=== PATIENT | male | born 1960 | race Caucasian/White ===

== ENCOUNTER 2024-01-30 14:33 | Inpatient (IN) ==
[2024-01-30] MEDS: Lactated Ringers SEPSIS* BAG 1,780 ML IV ONE (15:05)
[2024-01-30 15:21] LABS: Hematocrit 24.2 % (38-53); Hemoglobin 8.6 g/dL (13.2-16.3); Mean Corpuscular Hemoglobin 37.5 pg (27-33); Mean Corpuscular Hgb Conc 35.5 g/dL (31-36); Mean Corpuscular Volume 105.7 fL (80-97); Red Blood Count 2.29 10^6/uL (4.06-5.63); Red Cell Distribution Width 15.8 % (12-17); White Blood Count 28.3 10^3/uL (3.6-10.2)
[2024-01-30 15:31] LABS: Activated Partial Thrombo Time 39.3 seconds (26.0-38.0); INR 1.65 (0.85-1.14)
[2024-01-30 15:41] LABS: C Reactive Protein 23.84 mg/L (<8.01); Calcium 10.1 mg/dL (8.6-10.3); Creatinine, Serum 2.73 mg/dL (0.67-1.17); Potassium 5.2 mmol/L (3.5-5.0); eGFR CKD-EPI 25.2 (>60)
[2024-01-30 15:45] LABS: Albumin 3.5 g/dL (3.2-5.2); Albumin/Globulin Ratio 0.9 (1-3); Globulin 3.7 g/dL (2-4); Total Bilirubin 14.8 mg/dL (0.2-1.0); Total Protein 7.2 g/dL (6.4-8.9)
[2024-01-30] MEDS: Piperacillin/Tazobac 3.375 BAG 3.375 GM/100 ML BAG IV ONE (15:45)
[2024-01-30 15:49] LABS: ABS Basophils 0.1 10^3/uL (0.0-0.1); ABS Lymphocytes 1.3 10^3/uL (1.0-4.8); ABS Monocytes 2.4 10^3/uL (0.0-1.1); ABS Neutrophils 24.4 10^3/uL (1.5-7.6); ABS Nucleated RBC 0.01 10^3/ul; Lymphocyte % 4.8 %; Mean Platelet Volume 6.9 fL (7.5-11.2); Platelet Count 211 10^3/uL (150-450)
[2024-01-30] MEDS ORDERED: Vancomycin 1,000 MG in NS 0.9% 250 ml 250 ML IVPB SCH (16:00)
[2024-01-30] MEDS: Vancomycin 1,000 MG - ED ONCE IVPB ONE (16:15)
[2024-01-30 16:46] LABS: High Sensitivity Troponin 1 Hr 19 pg/mL (<20)
[2024-01-30 18:23] LABS: Urine Appearance Turbid; Urine Bilirubin 1+ (Negative); Urine Blood 1+ (Negative); Urine Color Dark-Yellow; Urine Glucose Negative (Negative); Urine Ketones Negative (Negative); Urine Nitrite Negative (Negative); Urine Protein Trace (Negative); Urine Urobilinogen 1+ (Negative)
[2024-01-30 19:12] LABS: Urine Bacteria Absent /HPF (Absent); Urine Red Blood Cell 1+(3-5/hpf) /HPF (0-Trace); Urine Squamous Epithelial Cell Present /HPF (Absent); Urine White Blood Cell 1+(6-10/hpf) /HPF (0-Trace)
[2024-01-30 23:53] LABS: ABS Basophils 0.1 10^3/uL (0.0-0.1); ABS Lymphocytes 1.5 10^3/uL (1.0-4.8); ABS Monocytes 2.5 10^3/uL (0.0-1.1); ABS Neutrophils 24.8 10^3/uL (1.5-7.6); ABS Nucleated RBC 0.01 10^3/ul; Eosinophil % 0.1 %; Hematocrit 19.7 % (38-53); Hemoglobin 6.7 g/dL (13.2-16.3); Lymphocyte % 5.3 %; Mean Corpuscular Hgb Conc 34.1 g/dL (31-36); Mean Corpuscular Volume 105.4 fL (80-97); Mean Platelet Volume 6.7 fL (7.5-11.2); Platelet Count 163 10^3/uL (150-450); Red Blood Count 1.87 10^6/uL (4.06-5.63); Red Cell Distribution Width 16.1 % (12-17)
[2024-01-31 00:07] LABS: Calcium 8.4 mg/dL (8.6-10.3); Creatinine, Serum 2.51 mg/dL (0.67-1.17); eGFR CKD-EPI 27.9 (>60)
[2024-01-31 00:13] LABS: Albumin 2.8 g/dL (3.2-5.2); Albumin/Globulin Ratio 1.1 (1-3); Direct Bilirubin 3.6 mg/dL (0.03-0.18); Globulin 2.6 g/dL (2-4); Indirect Bilirubin 8.4 mg/dL (0.3-1.0); Total Protein 5.4 g/dL (6.4-8.9)
[2024-01-31] MEDS: Lactulose 30 ml UDC PO SCH (00:20)
[2024-01-31] MEDS: Lactated Ringers 1000 ml BAG 1,000 ML IV ONE (00:21)
[2024-01-31] MEDS: Polyethylene Glycol 3350 17 GM PACKET PO SCH (00:21)
[2024-01-31] MEDS ORDERED: Zosyn per Pharmacy NOTE FOLLOW UP SCH (02:00)
[2024-01-31 03:26] LABS: Hematocrit 16.1 % (38-53); Hemoglobin 5.6 g/dL (13.2-16.3)
[2024-01-31] MEDS: Zosyn 3.375 GM IV - ED ONCE IV ONE (03:30)
[2024-01-31] MEDS: Pantoprazole VIAL 40 MG VIAL IV ONE (04:15)
[2024-01-31] MEDS: cefTRIAXone 1 gm/50 mL D5W 1 GM/50 ML BAG IV SCH (04:26)
[2024-01-31] MEDS: Octreotide Acetate 50 MCG in NS 0.9% 50 ML 50 ML IV ONE (04:51)
[2024-01-31 05:00] LABS: Hemoglobin 6.1 g/dL (13.2-16.3)
[2024-01-31 05:26] LABS: Albumin 2.7 g/dL (3.2-5.2); Albumin/Globulin Ratio 0.9 (1-3); Calcium 8.5 mg/dL (8.6-10.3); Creatinine, Serum 2.92 mg/dL (0.67-1.17); Globulin 2.9 g/dL (2-4); Potassium 5.5 mmol/L (3.5-5.0); Total Bilirubin 11.3 mg/dL (0.2-1.0); Total Protein 5.6 g/dL (6.4-8.9); eGFR CKD-EPI 23.2 (>60)
[2024-01-31] MEDS: Pantoprazole 80 mg in NS BAG 80 MG/250 ML BAG IV SCH (05:31)
[2024-01-31 05:38] LABS: ABS Basophils 0.2 10^3/uL (0.0-0.1); ABS Lymphocytes 1.9 10^3/uL (1.0-4.8); ABS Monocytes 2.2 10^3/uL (0.0-1.1); ABS Neutrophils 25.2 10^3/uL (1.5-7.6); Eosinophil % 0.1 %; Hematocrit 17.4 % (38-53); Lymphocyte % 6.3 %; Macrocytosis 1+; Mean Corpuscular Hgb Conc 35.2 g/dL (31-36); Mean Corpuscular Volume 105.2 fL (80-97); Mean Platelet Volume 6.9 fL (7.5-11.2); Platelet Count 152 10^3/uL (150-450); Polychromasia 2+; Red Blood Count 1.66 10^6/uL (4.06-5.63); Red Cell Distribution Width 16.4 % (12-17); Tear Drop Cells 1+; White Blood Count 29.5 10^3/uL (3.6-10.2)
[2024-01-31] MEDS: Octreotide Acetate 500 MCG in NS 0.9% 100 ml BAG 100 ML IV SCH (05:43)
[2024-01-31] MEDS ORDERED: HYDROmorphone 1 MG/1 ML SYRINGE IV SLOW PU PRN (09:53)
[2024-01-31] MEDS: Phytonadione IV (Adult) 10 MG in NS 0.9% 50 ML 50 ML IV ONE (11:30)
[2024-01-31] MEDS ORDERED: Sulfur Hexaflouride MICROSPHR 25 MG VIAL IV PRN (12:24)
[2024-01-31] MEDS: ceFAZolin 1 GM in Dextrose 1 GM/50 ML BAG IVPB ONE (13:19)
[2024-01-31 15:06] LABS: Magnesium 1.7 mg/dL (1.9-2.7); Phosphorus 5.6 mg/dL (2.5-5.0)
[2024-01-31] MEDS: Magnesium Sulfate 2 gm BAG 2 GM/50 ML BAG IVPB ONE (15:33)
[2024-01-31 16:10] LABS: Hematocrit 20.3 % (38-53); Hemoglobin 7.3 g/dL (13.2-16.3); Mean Corpuscular Hgb Conc 35.8 g/dL (31-36); Mean Corpuscular Volume 97.9 fL (80-97); Mean Platelet Volume 6.9 fL (7.5-11.2); Platelet Count 113 10^3/uL (150-450); Red Blood Count 2.07 10^6/uL (4.06-5.63); Red Cell Distribution Width 17.3 % (12-17); White Blood Count 26.3 10^3/uL (3.6-10.2)
[2024-01-31] MEDS: SODIUM ZIRCONIUM CYCLOSILICATE 10 GM PACKET PO ONE (16:11)
[2024-01-31 16:29] LABS: Activated Partial Thrombo Time 35.7 seconds (26.0-38.0); INR 1.71 (0.85-1.14)
[2024-01-31 16:52] LABS: ABS Basophils 0.1 10^3/uL (0.0-0.1); ABS Eosinophils 0.1 10^3/uL (0.0-0.5); ABS Lymphocytes 2.1 10^3/uL (1.0-4.8); ABS Monocytes 2.2 10^3/uL (0.0-1.1); ABS Neutrophils 21.7 10^3/uL (1.5-7.6); ABS Nucleated RBC 0.02 10^3/ul; Anisocytosis 1+; Basophilic Stippling 1+; Eosinophil % 0.3 %; Lymphocyte % 8.1 %; Nucleated Red Blood Cells % 0.1 %/100WBC (0.0-0.8); Tear Drop Cells 1+; Toxic Granulation 1+
[2024-01-31] MEDS: Magnesium Sulfate IV 1GM/100ML 1 GM/100 ML BAG IV ONE (16:55)
[2024-01-31 16:57] LABS: Calcium 8.5 mg/dL (8.6-10.3); Creatinine, Serum 2.62 mg/dL (0.67-1.17); Potassium 5.7 mmol/L (3.5-5.0); eGFR CKD-EPI 26.5 (>60)
[2024-01-31 17:01] LABS: Albumin 2.8 g/dL (3.2-5.2); Globulin 2.7 g/dL (2-4); Total Bilirubin 12.3 mg/dL (0.2-1.0); Total Protein 5.5 g/dL (6.4-8.9)
[2024-01-31] MEDS: NS 0.9% 1000 ml BAG 1,000 ML IV SCH (22:10)
[2024-02-01 00:47] LABS: Hematocrit 19.6 % (38-53); Hemoglobin 7.1 g/dL (13.2-16.3); Mean Corpuscular Hemoglobin 35.1 pg (27-33); Mean Corpuscular Hgb Conc 36.2 g/dL (31-36); Red Blood Count 2.02 10^6/uL (4.06-5.63); Red Cell Distribution Width 18.8 % (12-17); White Blood Count 22.3 10^3/uL (3.6-10.2)
[2024-02-01 01:16] LABS: Calcium 8.1 mg/dL (8.6-10.3); Creatinine, Serum 2.28 mg/dL (0.67-1.17); Potassium 4.9 mmol/L (3.5-5.0); eGFR CKD-EPI 31.3 (>60)
[2024-02-01 01:51] LABS: ABS Basophils 0.1 10^3/uL (0.0-0.1); ABS Eosinophils 0.1 10^3/uL (0.0-0.5); ABS Lymphocytes 1.9 10^3/uL (1.0-4.8); ABS Monocytes 2.2 10^3/uL (0.0-1.1); ABS Nucleated RBC 0.02 10^3/ul; Anisocytosis 1+; Eosinophil % 0.4 %; Lymphocyte % 8.5 %; Mean Platelet Volume 6.7 fL (7.5-11.2); Nucleated Red Blood Cells % 0.1 %/100WBC (0.0-0.8); Platelet Count 98 10^3/uL (150-450)
[2024-02-01] MEDS: ceFAZolin 1 GM in Dextrose 1 GM/50 ML BAG IVPB SCH (02:04)
[2024-02-01] MEDS ORDERED: cefTRIAXone 1 gm/50 mL D5W 1 GM/50 ML BAG IV SCH (04:00)
[2024-02-01 06:20] LABS: INR 1.61 (0.85-1.14)
[2024-02-01 06:50] LABS: Hematocrit 20.3 % (38-53); Hemoglobin 7.3 g/dL (13.2-16.3); Mean Corpuscular Hemoglobin 34.7 pg (27-33); Mean Corpuscular Hgb Conc 35.8 g/dL (31-36); Red Blood Count 2.09 10^6/uL (4.06-5.63); Red Cell Distribution Width 18.7 % (12-17); White Blood Count 20.7 10^3/uL (3.6-10.2)
[2024-02-01 06:51] LABS: Calcium 8.2 mg/dL (8.6-10.3); Creatinine, Serum 1.91 mg/dL (0.67-1.17); Potassium 4.6 mmol/L (3.5-5.0); eGFR CKD-EPI 38.7 (>60)
[2024-02-01 07:00] LABS: Albumin 2.7 g/dL (3.2-5.2); Albumin/Globulin Ratio 1.1 (1-3); Globulin 2.5 g/dL (2-4); Total Bilirubin 13.9 mg/dL (0.2-1.0); Total Protein 5.2 g/dL (6.4-8.9)
[2024-02-01 07:39] LABS: Mean Platelet Volume 6.9 fL (7.5-11.2); Platelet Count 98 10^3/uL (150-450)
[2024-02-01 07:40] LABS: ABS Basophils 0.2 10^3/uL (0.0-0.1); ABS Eosinophils 0.1 10^3/uL (0.0-0.5); ABS Lymphocytes 1.9 10^3/uL (1.0-4.8); ABS Monocytes 2.1 10^3/uL (0.0-1.1); ABS Neutrophils 16.2 10^3/uL (1.5-7.6); ABS Nucleated RBC 0.03 10^3/ul; Eosinophil % 0.4 %; Lymphocyte % 9.4 %; Nucleated Red Blood Cells % 0.1 %/100WBC (0.0-0.8)
[2024-02-01 14:16] LABS: Hematocrit 19.2 % (38-53); Hemoglobin 6.8 g/dL (13.2-16.3)
[2024-02-02 07:17] LABS: Hematocrit 21.8 % (38-53); Mean Corpuscular Hemoglobin 35.3 pg (27-33); Mean Corpuscular Hgb Conc 36.7 g/dL (31-36); Mean Corpuscular Volume 96.1 fL (80-97); Red Blood Count 2.27 10^6/uL (4.06-5.63); White Blood Count 14.8 10^3/uL (3.6-10.2)
[2024-02-02 07:18] LABS: INR 1.65 (0.85-1.14)
[2024-02-02 07:40] LABS: Calcium 7.7 mg/dL (8.6-10.3); Potassium 4.2 mmol/L (3.5-5.0)
[2024-02-02 07:46] LABS: Albumin 2.6 g/dL (3.2-5.2); Albumin/Globulin Ratio 1.1 (1-3); Globulin 2.4 g/dL (2-4); Magnesium 1.8 mg/dL (1.9-2.7); Total Bilirubin 15.3 mg/dL (0.2-1.0)
[2024-02-02 08:30] LABS: ABS Basophils 0.1 10^3/uL (0.0-0.1); ABS Eosinophils 0.1 10^3/uL (0.0-0.5); ABS Lymphocytes 1.6 10^3/uL (1.0-4.8); ABS Monocytes 1.7 10^3/uL (0.0-1.1); ABS Neutrophils 11.3 10^3/uL (1.5-7.6); ABS Nucleated RBC 0.02 10^3/ul; Anisocytosis 1+; Basophilic Stippling 1+; Eosinophil % 0.6 %; Lymphocyte % 11.1 %; Nucleated Red Blood Cells % 0.1 %/100WBC (0.0-0.8); Platelet Count 82 10^3/uL (150-450); Polychromasia 1+; Toxic Granulation 1+
[2024-02-02] MEDS: Magnesium Sulfate 2 gm BAG 2 GM/50 ML BAG IVPB ONE (08:33)
[2024-02-02 12:39] LABS: Hematocrit 22.7 % (38-53); Hemoglobin 8.1 g/dL (13.2-16.3); Mean Corpuscular Hgb Conc 35.7 g/dL (31-36); Red Blood Count 2.32 10^6/uL (4.06-5.63); Red Cell Distribution Width 18.5 % (12-17); White Blood Count 16.4 10^3/uL (3.6-10.2)
[2024-02-02 13:26] LABS: ABS Basophils 0.1 10^3/uL (0.0-0.1); ABS Eosinophils 0.1 10^3/uL (0.0-0.5); ABS Lymphocytes 1.4 10^3/uL (1.0-4.8); ABS Monocytes 1.7 10^3/uL (0.0-1.1); ABS Neutrophils 13.1 10^3/uL (1.5-7.6); ABS Nucleated RBC 0.03 10^3/ul; Eosinophil % 0.7 %; Lymphocyte % 8.8 %; Nucleated Red Blood Cells % 0.2 %/100WBC (0.0-0.8); Platelet Count 90 10^3/uL (150-450)
[2024-02-02] MEDS: ceFAZolin 2 GM PREMIX 2 GM/50 ML BAG IV SCH (14:20)
[2024-02-02 14:38] LABS: Urine Appearance Clear; Urine Bilirubin 1+ (Negative); Urine Blood Trace (Negative); Urine Color Dark-Yellow; Urine Glucose Negative (Negative); Urine Ketones Negative (Negative); Urine Nitrite Negative (Negative); Urine Protein Negative (Negative); Urine Specific Gravity 1.015 (1.002-1.030); Urine Urobilinogen Negative (Negative); Urine pH 5.5 (5.0-8.0)
[2024-02-02 14:39] LABS: Urine Bacteria Absent /HPF (Absent); Urine Red Blood Cell Trace(0-2/hpf) /HPF (0-Trace); Urine Squamous Epithelial Cell Present /HPF (Absent); Urine White Blood Cell Trace(0-5/hpf) /HPF (0-Trace)
[2024-02-02 21:07] LABS: Hemoglobin 7.6 g/dL (13.2-16.3); Mean Corpuscular Hemoglobin 35.5 pg (27-33); Mean Corpuscular Hgb Conc 36.3 g/dL (31-36); Mean Corpuscular Volume 97.9 fL (80-97); Red Blood Count 2.14 10^6/uL (4.06-5.63); Red Cell Distribution Width 18.4 % (12-17); White Blood Count 19.5 10^3/uL (3.6-10.2)
[2024-02-02 21:42] LABS: Mean Platelet Volume 6.9 fL (7.5-11.2); Platelet Count 89 10^3/uL (150-450)
[2024-02-02 21:44] LABS: ABS Basophils 0.1 10^3/uL (0.0-0.1); ABS Eosinophils 0.1 10^3/uL (0.0-0.5); ABS Lymphocytes 2.2 10^3/uL (1.0-4.8); ABS Monocytes 2.5 10^3/uL (0.0-1.1); ABS Neutrophils 14.6 10^3/uL (1.5-7.6); ABS Nucleated RBC 0.04 10^3/ul; Anisocytosis 1+; Eosinophil % 0.7 %; Lymphocyte % 11.3 %; Nucleated Red Blood Cells % 0.2 %/100WBC (0.0-0.8)
[2024-02-02] MEDS: Pantoprazole VIAL 40 MG VIAL IV SCH (22:32)
[2024-02-03] MEDS: ceFAZolin 2 GM PREMIX 2 GM/50 ML BAG IV SCH (05:42)
[2024-02-03 06:14] LABS: INR 1.93 (0.85-1.14)
[2024-02-03 06:16] LABS: Hematocrit 21.6 % (38-53); Hemoglobin 7.9 g/dL (13.2-16.3); Mean Corpuscular Hemoglobin 35.9 pg (27-33); Mean Corpuscular Hgb Conc 36.3 g/dL (31-36); Mean Corpuscular Volume 98.7 fL (80-97); Platelet Count 82 10^3/uL (150-450); Red Blood Count 2.19 10^6/uL (4.06-5.63); Red Cell Distribution Width 18.3 % (12-17)
[2024-02-03 06:36] LABS: Calcium 7.5 mg/dL (8.6-10.3); Creatinine, Serum 0.84 mg/dL (0.67-1.17); Potassium 3.8 mmol/L (3.5-5.0); eGFR CKD-EPI 97.4 (>60)
[2024-02-03 06:41] LABS: Albumin 2.5 g/dL (3.2-5.2); Albumin/Globulin Ratio 1.1 (1-3); Globulin 2.3 g/dL (2-4); Total Protein 4.8 g/dL (6.4-8.9)
[2024-02-03 07:01] LABS: Magnesium 1.8 mg/dL (1.9-2.7)
[2024-02-03 07:12] LABS: ABS Basophils 0.2 10^3/uL (0.0-0.1); ABS Eosinophils 0.1 10^3/uL (0.0-0.5); ABS Lymphocytes 2.3 10^3/uL (1.0-4.8); ABS Monocytes 1.3 10^3/uL (0.0-1.1); ABS Neutrophils 14.1 10^3/uL (1.5-7.6); ABS Nucleated RBC 0.02 10^3/ul; Anisocytosis 1+; Burr Cells 1+; Eosinophil % 0.6 %; Lymphocyte % 12.7 %; Nucleated Red Blood Cells % 0.1 %/100WBC (0.0-0.8); Polychromasia 1+; Target Cells 1+
[2024-02-03] MEDS: Magnesium Sulfate 2 gm BAG 2 GM/50 ML BAG IVPB ONE (09:20)
[2024-02-03] MEDS ORDERED: Phenylephrine 40 mcg/mL 10mL (400mcg) SYRINGE ONE (13:56)
[2024-02-03] MEDS ORDERED: Lidocaine 2% PF 5 ML VIAL ONE (13:56)
[2024-02-03] MEDS ORDERED: Propofol 10 MG/ML 20 ML BTL ONE (14:14)
[2024-02-03] MEDS ORDERED: Succinylcholine 200 mg VIAL 20 mg/ml 10 ml VIAL (200 mg) ONE (14:55)
[2024-02-04 06:17] LABS: INR 2.09 (0.85-1.14)
[2024-02-04 06:44] LABS: Calcium 7.7 mg/dL (8.6-10.3); Creatinine, Serum 0.74 mg/dL (0.67-1.17); Potassium 3.6 mmol/L (3.5-5.0); eGFR CKD-EPI 101.2 (>60)
[2024-02-04 06:46] LABS: Albumin 2.5 g/dL (3.2-5.2); Albumin/Globulin Ratio 1.1 (1-3); Globulin 2.3 g/dL (2-4); Total Bilirubin 13.9 mg/dL (0.2-1.0); Total Protein 4.8 g/dL (6.4-8.9)
[2024-02-04 07:27] LABS: Hematocrit 19.9 % (38-53); Hemoglobin 7.1 g/dL (13.2-16.3); Mean Corpuscular Hemoglobin 35.7 pg (27-33); Mean Corpuscular Hgb Conc 35.9 g/dL (31-36); Mean Corpuscular Volume 99.3 fL (80-97); Red Cell Distribution Width 18.5 % (12-17); White Blood Count 18.8 10^3/uL (3.6-10.2)
[2024-02-04 07:30] LABS: ABS Basophils 0.2 10^3/uL (0.0-0.1); ABS Eosinophils 0.1 10^3/uL (0.0-0.5); ABS Lymphocytes 1.3 10^3/uL (1.0-4.8); ABS Monocytes 2.1 10^3/uL (0.0-1.1); ABS Neutrophils 15.2 10^3/uL (1.5-7.6); ABS Nucleated RBC 0.02 10^3/ul; Eosinophil % 0.4 %; Lymphocyte % 6.9 %; Mean Platelet Volume 7.3 fL (7.5-11.2); Nucleated Red Blood Cells % 0.1 %/100WBC (0.0-0.8); Platelet Count 78 10^3/uL (150-450); RBC Morphology Normal (Normal)
[2024-02-04 07:50] LABS: Hematocrit 22.3 % (38-53); Hemoglobin 7.9 g/dL (13.2-16.3)
[2024-02-05 06:52] LABS: Hematocrit 19.2 % (38-53); Hemoglobin 6.9 g/dL (13.2-16.3); Mean Corpuscular Hemoglobin 36.3 pg (27-33); Mean Corpuscular Hgb Conc 35.8 g/dL (31-36); Mean Corpuscular Volume 101.4 fL (80-97); Mean Platelet Volume 7.9 fL (7.5-11.2); Platelet Count 78 10^3/uL (150-450); Red Cell Distribution Width 20.2 % (12-17); White Blood Count 18.3 10^3/uL (3.6-10.2)
[2024-02-05 07:02] LABS: Calcium 7.3 mg/dL (8.6-10.3); Creatinine, Serum 0.77 mg/dL (0.67-1.17); Magnesium 1.9 mg/dL (1.9-2.7); Potassium 3.6 mmol/L (3.5-5.0)
[2024-02-05 08:29] LABS: Hematocrit 18.6 % (38-53); Hemoglobin 6.7 g/dL (13.2-16.3)
[2024-02-05 09:31] LABS: C Reactive Protein 19.57 mg/L (<8.01)
[2024-02-05] MEDS: Potassium Chlor 20 meq TAB.ER PO ONE (09:31)
[2024-02-05 10:01] LABS: Direct Bilirubin 3.4 mg/dL (0.03-0.18); Indirect Bilirubin 10.6 mg/dL (0.3-1.0)
[2024-02-05] MEDS ORDERED: Zosyn per Pharmacy NOTE FOLLOW UP PRN (11:11)
[2024-02-05 14:20] LABS: Hematocrit 22.8 % (38-53)
[2024-02-05] MEDS: Piperacillin/Tazobac 3.375 BAG 3.375 GM/100 ML BAG IV ONE (15:06)
[2024-02-05 17:09] LABS: ABS Basophils 0.1 10^3/uL (0.0-0.1); ABS Eosinophils 0.1 10^3/uL (0.0-0.5); ABS Monocytes 1.9 10^3/uL (0.0-1.1); ABS Neutrophils 16.5 10^3/uL (1.5-7.6); ABS Nucleated RBC 0.04 10^3/ul; Eosinophil % 0.3 %; Hematocrit 22.8 % (38-53); Mean Corpuscular Hemoglobin 34.5 pg (27-33); Mean Corpuscular Hgb Conc 35.1 g/dL (31-36); Mean Corpuscular Volume 98.3 fL (80-97); Nucleated Red Blood Cells % 0.2 %/100WBC (0.0-0.8); Platelet Count Platelets clumped. 10^3/uL (150-450); Red Blood Count 2.32 10^6/uL (4.06-5.63); Red Cell Distribution Width 21.7 % (12-17); White Blood Count 19.5 10^3/uL (3.6-10.2)
[2024-02-05 17:12] LABS: Anisocytosis 2+; Burr Cells 1+; Polychromasia 2+
[2024-02-05] MEDS: ZOSYN 3.375 GM Q8H per EXTENDED INFUSION IV SCH (20:22)
[2024-02-05 21:19] LABS: Urine Appearance Turbid; Urine Bilirubin 2+ (Negative); Urine Blood Trace (Negative); Urine Color Dark-Yellow; Urine Glucose Negative (Negative); Urine Ketones Trace (Negative); Urine Nitrite Negative (Negative); Urine Protein Trace (Negative); Urine Urobilinogen Negative (Negative); Urine pH 5.5 (5.0-8.0)
[2024-02-06 06:09] LABS: Hemoglobin 7.3 g/dL (13.2-16.3); Mean Corpuscular Hemoglobin 35.5 pg (27-33); Mean Corpuscular Hgb Conc 36.2 g/dL (31-36); Mean Corpuscular Volume 98.1 fL (80-97); Red Blood Count 2.04 10^6/uL (4.06-5.63); White Blood Count 21.4 10^3/uL (3.6-10.2)
[2024-02-06 06:22] LABS: Calcium 7.8 mg/dL (8.6-10.3); Creatinine, Serum 0.86 mg/dL (0.67-1.17); Potassium 4.2 mmol/L (3.5-5.0); eGFR CKD-EPI 96.7 (>60)
[2024-02-06 06:31] LABS: Albumin 2.6 g/dL (3.5-5.7); Albumin/Globulin Ratio 1.1 (1-3); Globulin 2.4 g/dL (2-4); Total Bilirubin 15.4 mg/dL (0.2-1.0)
[2024-02-06 07:20] LABS: ABS Basophils 0.2 10^3/uL (0.0-0.1); ABS Eosinophils 0.1 10^3/uL (0.0-0.5); ABS Lymphocytes 2.2 10^3/uL (1.0-4.8); ABS Monocytes 1.4 10^3/uL (0.0-1.1); ABS Neutrophils 17.4 10^3/uL (1.5-7.6); ABS Nucleated RBC 0.01 10^3/ul; Anisocytosis 1+; Eosinophil % 0.5 %; Lymphocyte % 10.5 %; Mean Platelet Volume 7.4 fL (7.5-11.2); Nucleated Red Blood Cells % 0.1 %/100WBC (0.0-0.8); Platelet Count 88 10^3/uL (150-450); Polychromasia 1+; Toxic Granulation 1+
[2024-02-06 08:37] LABS: INR 2.05 (0.85-1.14)
[2024-02-06 10:40] LABS: Hematocrit 20.2 % (38-53); Hemoglobin 7.2 g/dL (13.2-16.3)
[2024-02-06] MEDS: Iohexol 350 (CONTRAST) 500 ML MDV IV ONE (18:30)
[2024-02-06 20:45] LABS: Hematocrit 19.9 % (38-53); Hemoglobin 7.1 g/dL (13.2-16.3)
[2024-02-07] MEDS: Polyethylene Glycol 3350 17 GM PACKET PO PRN (03:08)
[2024-02-07] MEDS: Senna TAB 8.6 mg TAB PO PRN (03:08)
[2024-02-07] MEDS: Lactulose 30 ml UDC PO ONE (03:08)
[2024-02-07 05:55] LABS: Hematocrit 18.4 % (38-53); Hemoglobin 6.6 g/dL (13.2-16.3); Mean Corpuscular Hemoglobin 35.9 pg (27-33); Mean Corpuscular Hgb Conc 35.7 g/dL (31-36); Mean Corpuscular Volume 100.5 fL (80-97); Red Blood Count 1.83 10^6/uL (4.06-5.63); Red Cell Distribution Width 23.9 % (12-17); White Blood Count 21.5 10^3/uL (3.6-10.2)
[2024-02-07 06:22] LABS: Anion Gap 5 mmol/L (2-16); Blood Urea Nitrogen 19 mg/dL (6-24); CO2 Carbon Dioxide 24 mmol/L (22-32); Calcium 7.4 mg/dL (8.6-10.3); Chloride 96 mmol/L (101-111); Creatinine, Serum 1.04 mg/dL (0.67-1.17); Glucose 103 mg/dL (70-100); Magnesium 1.9 mg/dL (1.9-2.7); Sodium 125 mmol/L (135-145); eGFR CKD-EPI 80.2 (>60)
[2024-02-07 07:33] LABS: ABS Basophils 0.1 10^3/uL (0.0-0.1); ABS Eosinophils 0.1 10^3/uL (0.0-0.5); ABS Lymphocytes 1.1 10^3/uL (1.0-4.8); ABS Neutrophils 16.2 10^3/uL (1.5-7.6); ABS Nucleated RBC 0.03 10^3/ul; Anisocytosis 2+; Basophilic Stippling 1+; Burr Cells 1+; Eosinophil % 0.5 %; Lymphocyte % 5.2 %; Macrocytosis 1+; Mean Platelet Volume 7.6 fL (7.5-11.2); Nucleated Red Blood Cells % 0.1 %/100WBC (0.0-0.8); Platelet Count 97 10^3/uL (150-450); Polychromasia 1+; Tear Drop Cells 1+
[2024-02-07 08:07] LABS: Total Bilirubin 15.1 mg/dL (0.2-1.0)
[2024-02-07 10:24] LABS: INR 2.02 (0.85-1.14)
[2024-02-07 11:26] LABS: Protime (Maddrey) 22.6 seconds (9.5-12.8)
[2024-02-07 12:09] LABS: Body Fluid Total Nucleated 137 /mcL
[2024-02-07 12:58] LABS: Hematocrit 21.7 % (38-53); Hemoglobin 7.6 g/dL (13.2-16.3)
[2024-02-07 13:32] LABS: Total Bilirubin 15.1 mg/dL (0.2-1.0)
[2024-02-07 13:46] LABS: Body Fluid Mono 28 %; Body Fluid Other Cells 4; Body Fluid Total Cells Counted 200
[2024-02-07 13:47] LABS: Body Fluid Appearance Clear; Body Fluid Color Yellow; Body Fluid Source Peritonial Fluid
[2024-02-07 15:26] LABS: Hepatitis B Surface Antigen Nonreactive (Nonreactive)
[2024-02-07 15:32] LABS: Hepatitis B Core IgM Nonreactive (Nonreactive)
[2024-02-07 15:44] LABS: Hepatitis C Antibody Negative (Negative)
[2024-02-07] MEDS: ceFAZolin 2 GM PREMIX 2 GM/50 ML BAG IV SCH (21:54)
[2024-02-08] MEDS: ceFAZolin 2 GM PREMIX 2 GM/50 ML BAG IV SCH (06:11)
[2024-02-08] MEDS: HYDROmorphone 0.5 MG/0.5 ML SYRINGE IV SLOW PU ONE (06:11)
[2024-02-08 08:24] LABS: INR 2.14 (0.85-1.14)
[2024-02-08 08:33] LABS: Hematocrit 19.5 % (38-53); Hemoglobin 6.9 g/dL (13.2-16.3); Mean Corpuscular Hemoglobin 35.7 pg (27-33); Mean Corpuscular Hgb Conc 35.5 g/dL (31-36); Mean Corpuscular Volume 100.7 fL (80-97); Red Blood Count 1.94 10^6/uL (4.06-5.63); Red Cell Distribution Width 24.5 % (12-17); White Blood Count 20.8 10^3/uL (3.6-10.2)
[2024-02-08 08:54] LABS: ALT 10 U/L (7-52); Albumin 2.5 g/dL (3.5-5.7); Alkaline Phosphatase 96 U/L (35-149); Anion Gap 5 mmol/L (2-16); Blood Urea Nitrogen 25 mg/dL (6-24); CO2 Carbon Dioxide 25 mmol/L (22-32); Calcium 7.5 mg/dL (8.6-10.3); Chloride 96 mmol/L (101-111); Creatinine, Serum 1.21 mg/dL (0.67-1.17); Globulin 2.5 g/dL (2-4); Glucose 102 mg/dL (70-100); Magnesium 1.9 mg/dL (1.9-2.7); Sodium 126 mmol/L (135-145); Total Bilirubin 15.5 mg/dL (0.2-1.0); eGFR CKD-EPI 66.9 (>60)
[2024-02-08 09:18] LABS: Potassium, Whole Blood 4.2 mmol/L (3.4-4.5)
[2024-02-08 10:11] LABS: Anisocytosis 1+; Polychromasia 1+
[2024-02-08 10:12] LABS: ABS Basophils 0.2 10^3/uL (0.0-0.1); ABS Eosinophils 0.1 10^3/uL (0.0-0.5); ABS Lymphocytes 3.6 10^3/uL (1.0-4.8); ABS Monocytes 1.4 10^3/uL (0.0-1.1); ABS Neutrophils 15.4 10^3/uL (1.5-7.6); ABS Nucleated RBC 0.01 10^3/ul; Eosinophil % 0.5 %; Lymphocyte % 17.5 %; Mean Platelet Volume 7.8 fL (7.5-11.2); Platelet Count 102 10^3/uL (150-450)
[2024-02-08] MEDS: Albumin Human 25% 25 GM/100 ML BTL IV ONE (12:43)
[2024-02-08 14:11] LABS: Hematocrit 18.8 % (38-53); Hemoglobin 6.8 g/dL (13.2-16.3)
[2024-02-08 15:33] LABS: Urine Appearance Clear; Urine Color Amber; Urine Specific Gravity 1.025 (1.002-1.030)
[2024-02-08 15:55] LABS: Fluid Type, Protein, Total PERITONEAL FLUID; Glucose, BF 125 mg/dL; Total Protein, BF 0.4 g/dL
[2024-02-08 16:00] LABS: Urine Bacteria Absent /HPF (Absent); Urine Granular Casts Present /LPF (Absent); Urine Red Blood Cell 3+(>10/hpf) /HPF (0-Trace); Urine White Blood Cell 3+(>20/hpf) /HPF (0-Trace)
[2024-02-08 16:46] LABS: Albumin, BF 0.3 g/dL; Fluid Type, Albumin PERITONEAL FLUID
[2024-02-08 16:47] LABS: Lactate Dehydrogenase, BF 60 U/L
[2024-02-08] MEDS: Lactulose 30 ml UDC PO SCH (20:14)
[2024-02-08 22:17] LABS: Hematocrit 21.4 % (38-53); Hemoglobin 7.7 g/dL (13.2-16.3)
[2024-02-09 07:32] LABS: Anion Gap 7 mmol/L (2-16); Blood Urea Nitrogen 29 mg/dL (6-24); CO2 Carbon Dioxide 24 mmol/L (22-32); Calcium 7.7 mg/dL (8.6-10.3); Chloride 97 mmol/L (101-111); Creatinine, Serum 1.14 mg/dL (0.67-1.17); Glucose 93 mg/dL (70-100); Sodium 128 mmol/L (135-145); eGFR CKD-EPI 71.8 (>60)
[2024-02-09 07:58] LABS: Potassium, Whole Blood 4.4 mmol/L (3.4-4.5)
[2024-02-09 08:19] LABS: ALT 9 U/L (7-52); Albumin 2.7 g/dL (3.5-5.7); Albumin/Globulin Ratio 1.1 (1-3); Alkaline Phosphatase 97 U/L (35-149); Globulin 2.4 g/dL (2-4); Total Protein 5.1 g/dL (6.4-8.9)
[2024-02-09 08:47] LABS: ABS Basophils 0.1 10^3/uL (0.0-0.1); ABS Eosinophils 0.2 10^3/uL (0.0-0.5); ABS Lymphocytes 1.7 10^3/uL (1.0-4.8); ABS Monocytes 1.9 10^3/uL (0.0-1.1); ABS Neutrophils 16.1 10^3/uL (1.5-7.6); ABS Nucleated RBC 0.04 10^3/ul; Eosinophil % 0.9 %; Hematocrit 23.2 % (38-53); Hemoglobin 8.5 g/dL (13.2-16.3); Lymphocyte % 8.4 %; Mean Corpuscular Hemoglobin 35.4 pg (27-33); Mean Corpuscular Hgb Conc 36.8 g/dL (31-36); Mean Corpuscular Volume 96.3 fL (80-97); Mean Platelet Volume 7.7 fL (7.5-11.2); Nucleated Red Blood Cells % 0.2 %/100WBC (0.0-0.8); Platelet Count 91 10^3/uL (150-450); Red Blood Count 2.41 10^6/uL (4.06-5.63); Red Cell Distribution Width 18.8 % (12-17); White Blood Count 19.9 10^3/uL (3.6-10.2)
[2024-02-09 09:13] LABS: INR 2.16 (0.85-1.14)
[2024-02-09] MEDS: Phytonadione Oral Solution 5 MG/25 ML UDC PO ONE (10:08)
[2024-02-09 16:00] LABS: Folate > 20.00 ng/mL (5.90-24.80)
[2024-02-09 16:01] LABS: Vitamin B12 1098 pg/mL (180-914)
[2024-02-10] MEDS: HYDROmorphone 0.5 MG/0.5 ML SYRINGE IV SLOW PU ONE (01:16)
[2024-02-10 06:07] LABS: INR 2.06 (0.85-1.14)
[2024-02-10 06:25] LABS: Hemoglobin 8.8 g/dL (13.2-16.3); Mean Corpuscular Hemoglobin 35.2 pg (27-33); Mean Corpuscular Hgb Conc 35.2 g/dL (31-36); Mean Corpuscular Volume 99.9 fL (80-97); Red Cell Distribution Width 22.1 % (12-17); White Blood Count 22.5 10^3/uL (3.6-10.2)
[2024-02-10 07:02] LABS: ABS Basophils 0.2 10^3/uL (0.0-0.1); ABS Eosinophils 0.1 10^3/uL (0.0-0.5); ABS Lymphocytes 5.4 10^3/uL (1.0-4.8); ABS Monocytes 1.7 10^3/uL (0.0-1.1); ABS Neutrophils 15.2 10^3/uL (1.5-7.6); ABS Nucleated RBC 0.03 10^3/ul; ALT 10 U/L (7-52); Albumin 2.9 g/dL (3.5-5.7); Albumin/Globulin Ratio 1.1 (1-3); Alkaline Phosphatase 110 U/L (35-149); Anion Gap 5 mmol/L (2-16); Blood Urea Nitrogen 29 mg/dL (6-24); CO2 Carbon Dioxide 24 mmol/L (22-32); Calcium 8.2 mg/dL (8.6-10.3); Chloride 96 mmol/L (101-111); Creatinine, Serum 1.13 mg/dL (0.67-1.17); Eosinophil % 0.3 %; Globulin 2.7 g/dL (2-4); Glucose 103 mg/dL (70-100); Lymphocyte % 23.8 %; Mean Platelet Volume 7.4 fL (7.5-11.2); Nucleated Red Blood Cells % 0.1 %/100WBC (0.0-0.8); Platelet Count 105 10^3/uL (150-450); Sodium 125 mmol/L (135-145); Total Bilirubin 17.6 mg/dL (0.2-1.0); Total Protein 5.6 g/dL (6.4-8.9); eGFR CKD-EPI 72.6 (>60)
[2024-02-10 08:19] LABS: ALT 10 U/L (7-52); Albumin 2.7 g/dL (3.5-5.7); Alkaline Phosphatase 115 U/L (35-149); Anion Gap 6 mmol/L (2-16); Blood Urea Nitrogen 29 mg/dL (6-24); CO2 Carbon Dioxide 25 mmol/L (22-32); Calcium 7.7 mg/dL (8.6-10.3); Chloride 95 mmol/L (101-111); Creatinine, Serum 1.15 mg/dL (0.67-1.17); Globulin 2.6 g/dL (2-4); Glucose 99 mg/dL (70-100); Sodium 126 mmol/L (135-145); Total Bilirubin 16.3 mg/dL (0.2-1.0); Total Protein 5.3 g/dL (6.4-8.9); eGFR CKD-EPI 71.1 (>60)
[2024-02-10 08:42] LABS: Potassium, Whole Blood 4.1 mmol/L (3.4-4.5)
[2024-02-10] MEDS: Lactulose 30 ml UDC PO SCH (14:11)
[2024-02-11 06:45] LABS: ALT 7 U/L (7-52); Albumin 2.7 g/dL (3.5-5.7); Albumin/Globulin Ratio 1.1 (1-3); Alkaline Phosphatase 102 U/L (35-149); Anion Gap 2 mmol/L (2-16); Blood Urea Nitrogen 33 mg/dL (6-24); CO2 Carbon Dioxide 27 mmol/L (22-32); Calcium 8.5 mg/dL (8.6-10.3); Chloride 95 mmol/L (101-111); Creatinine, Serum 1.15 mg/dL (0.67-1.17); Globulin 2.5 g/dL (2-4); Glucose 102 mg/dL (70-100); Magnesium 2.1 mg/dL (1.9-2.7); Sodium 124 mmol/L (135-145); Total Protein 5.2 g/dL (6.4-8.9); eGFR CKD-EPI 71.1 (>60)
[2024-02-11 08:05] LABS: ABS Basophils 0.1 10^3/uL (0.0-0.1); ABS Eosinophils 0.1 10^3/uL (0.0-0.5); ABS Lymphocytes 0.9 10^3/uL (1.0-4.8); ABS Nucleated RBC 0.03 10^3/ul; Anisocytosis 2+; Burr Cells 1+; Eosinophil % 0.5 %; Hematocrit 20.9 % (38-53); Hemoglobin 7.6 g/dL (13.2-16.3); Lymphocyte % 4.1 %; Macrocytosis 1+; Mean Corpuscular Hemoglobin 36.6 pg (27-33); Mean Corpuscular Hgb Conc 36.6 g/dL (31-36); Mean Platelet Volume 7.3 fL (7.5-11.2); Nucleated Red Blood Cells % 0.1 %/100WBC (0.0-0.8); Platelet Count 99 10^3/uL (150-450); Polychromasia 1+; Red Blood Count 2.09 10^6/uL (4.06-5.63); Red Cell Distribution Width 25.8 % (12-17); Toxic Granulation 1+; White Blood Count 21.1 10^3/uL (3.6-10.2)
[2024-02-11 08:46] LABS: INR 2.2 (0.85-1.14)
[2024-02-11] MEDS: Phytonadione Oral Solution 5 MG/25 ML UDC PO ONE (11:55)
[2024-02-11 12:27] LABS: Rapid COVID-19 Molecular Undetected (Undetected)
[2024-02-11 21:49] LABS: Hematocrit 19.3 % (38-53)
[2024-02-12 06:39] LABS: ALT 6 U/L (7-52); Albumin 2.6 g/dL (3.5-5.7); Alkaline Phosphatase 96 U/L (35-149); Anion Gap 6 mmol/L (2-16); Blood Urea Nitrogen 29 mg/dL (6-24); CO2 Carbon Dioxide 26 mmol/L (22-32); Chloride 97 mmol/L (101-111); Creatinine, Serum 1.03 mg/dL (0.67-1.17); Globulin 2.6 g/dL (2-4); Glucose 99 mg/dL (70-100); Magnesium 1.8 mg/dL (1.9-2.7); Sodium 129 mmol/L (135-145); Total Bilirubin 15.3 mg/dL (0.2-1.0); Total Protein 5.2 g/dL (6.4-8.9); eGFR CKD-EPI 81.1 (>60)
[2024-02-12 07:18] LABS: Hematocrit 17.9 % (38-53); Hemoglobin 6.5 g/dL (13.2-16.3); Mean Corpuscular Hemoglobin 36.9 pg (27-33); Mean Corpuscular Hgb Conc 36.5 g/dL (31-36); Mean Corpuscular Volume 101.1 fL (80-97); Red Blood Count 1.77 10^6/uL (4.06-5.63); Red Cell Distribution Width 27.4 % (12-17); White Blood Count 17.9 10^3/uL (3.6-10.2)
[2024-02-12 07:38] LABS: INR 2.04 (0.85-1.14)
[2024-02-12 07:44] LABS: ABS Basophils 0.2 10^3/uL (0.0-0.1); ABS Eosinophils 0.1 10^3/uL (0.0-0.5); ABS Lymphocytes 0.5 10^3/uL (1.0-4.8); ABS Monocytes 5.1 10^3/uL (0.0-1.1); ABS Neutrophils 11.8 10^3/uL (1.5-7.6); ABS Nucleated RBC 0.02 10^3/ul; Acanthocytes 1+; Anisocytosis 2+; Basophilic Stippling 2+; Burr Cells 1+; Eosinophil % 0.8 %; Lymphocyte % 3.1 %; Mean Platelet Volume 7.3 fL (7.5-11.2); Nucleated Red Blood Cells % 0.1 %/100WBC (0.0-0.8); Platelet Count 92 10^3/uL (150-450)
[2024-02-12 09:23] LABS: Corrected Retic Count 4.3 % (0.5-2.2); Hematocrit for Retic CNT 17.9 % (38-53); RBC Retic Count 1.77 10^6/ul (4.06-5.63)
[2024-02-12 09:53] LABS: Folate > 20.00 ng/mL (5.90-24.80)
[2024-02-12 09:54] LABS: Vitamin B12 1329 pg/mL (180-914)
[2024-02-12] MEDS: Magnesium Sulfate IV 1GM/100ML 1 GM/100 ML BAG IV ONE (10:33)
[2024-02-12 10:47] LABS: .Transferrin 115 mg/dL (203-362); Total Iron Binding Capacity 161 mcg/dL (250-450)
[2024-02-12 10:50] LABS: Ferritin 1077.5 ng/mL (24-336)
[2024-02-12 16:24] LABS: Total Bilirubin 15.2 mg/dL (0.2-1.0)
[2024-02-12 16:31] LABS: Potassium, Whole Blood 4.3 mmol/L (3.4-4.5)
[2024-02-12 17:56] LABS: Hemoglobin 7.2 g/dL (13.2-16.3)
[2024-02-12 23:02] LABS: Hematocrit 19.3 % (38-53); Hemoglobin 7.1 g/dL (13.2-16.3)
[2024-02-13 07:29] LABS: Hematocrit 19.2 % (38-53); Hemoglobin 6.8 g/dL (13.2-16.3); Mean Corpuscular Hemoglobin 35.2 pg (27-33); Mean Corpuscular Hgb Conc 35.4 g/dL (31-36); Mean Corpuscular Volume 99.7 fL (80-97); Red Blood Count 1.93 10^6/uL (4.06-5.63); White Blood Count 17.3 10^3/uL (3.6-10.2)
[2024-02-13 07:31] LABS: ALT 6 U/L (7-52); Albumin 2.6 g/dL (3.5-5.7); Alkaline Phosphatase 92 U/L (35-149); Anion Gap 7 mmol/L (2-16); Blood Urea Nitrogen 26 mg/dL (6-24); CO2 Carbon Dioxide 26 mmol/L (22-32); Chloride 95 mmol/L (101-111); Globulin 2.7 g/dL (2-4); Glucose 93 mg/dL (70-100); Magnesium 1.8 mg/dL (1.9-2.7); Sodium 128 mmol/L (135-145); Total Bilirubin 14.5 mg/dL (0.2-1.0); Total Protein 5.3 g/dL (6.4-8.9)
[2024-02-13 07:40] LABS: INR 1.78 (0.85-1.14)
[2024-02-13 08:19] LABS: ABS Basophils 0.2 10^3/uL (0.0-0.1); ABS Eosinophils 0.1 10^3/uL (0.0-0.5); ABS Lymphocytes 0.6 10^3/uL (1.0-4.8); ABS Monocytes 4.7 10^3/uL (0.0-1.1); ABS Neutrophils 11.7 10^3/uL (1.5-7.6); ABS Nucleated RBC 0.01 10^3/ul; Acanthocytes 2+; Anisocytosis 2+; Burr Cells 2+; Eosinophil % 0.6 %; Lymphocyte % 3.5 %; Mean Platelet Volume 7.5 fL (7.5-11.2); Platelet Count 96 10^3/uL (150-450); Polychromasia 1+
[2024-02-13 08:45] LABS: Potassium, Whole Blood 4.4 mmol/L (3.4-4.5)
[2024-02-13 11:13] LABS: .Transferrin 98 mg/dL (203-362); Ferritin 939.3 ng/mL (24-336); Total Iron Binding Capacity 137 mcg/dL (250-450)
[2024-02-13] MEDS: Calcium Carb (TUMS) 500 mg CHEW TAB PO SCH (11:52)
[2024-02-13 12:23] LABS: Urine Appearance Clear; Urine Bilirubin Negative (Negative); Urine Blood 1+ (Negative); Urine Color Yellow; Urine Glucose Negative (Negative); Urine Ketones Negative (Negative); Urine Nitrite Negative (Negative); Urine Protein Negative (Negative); Urine Specific Gravity 1.007 (1.002-1.030); Urine Urobilinogen Negative (Negative)
[2024-02-13 12:24] LABS: Urine Bacteria Absent /HPF (Absent); Urine Red Blood Cell Trace(0-2/hpf) /HPF (0-Trace); Urine Squamous Epithelial Cell Present /HPF (Absent); Urine White Blood Cell Trace(0-5/hpf) /HPF (0-Trace)
[2024-02-13 14:44] LABS: Hematocrit 22.8 % (38-53); Hemoglobin 8.2 g/dL (13.2-16.3)
[2024-02-13] MEDS: Famotidine IV 10 MG/ML 2 ml VIAL (20 mg) IV SLOW PU ONE (15:26)
[2024-02-13 18:46] LABS: Urine Appearance Clear; Urine Bilirubin 1+ (Negative); Urine Blood 1+ (Negative); Urine Color Dark-Yellow; Urine Glucose Negative (Negative); Urine Ketones Trace (Negative); Urine Nitrite Negative (Negative); Urine Protein Trace (Negative); Urine Specific Gravity 1.016 (1.002-1.030); Urine Urobilinogen Negative (Negative); Urine pH 5.5 (5.0-8.0)
[2024-02-13 18:50] LABS: Urine Bacteria Absent /HPF (Absent); Urine Red Blood Cell Trace(0-2/hpf) /HPF (0-Trace); Urine Squamous Epithelial Cell Present /HPF (Absent); Urine White Blood Cell Trace(0-5/hpf) /HPF (0-Trace)
[2024-02-14 05:49] LABS: INR 1.88 (0.85-1.14)
[2024-02-14 06:40] LABS: ALT 5 U/L (7-52); Albumin 2.7 g/dL (3.5-5.7); Alkaline Phosphatase 91 U/L (35-149); Anion Gap 2 mmol/L (2-16); Blood Urea Nitrogen 28 mg/dL (6-24); CO2 Carbon Dioxide 29 mmol/L (22-32); Calcium 8.5 mg/dL (8.6-10.3); Chloride 98 mmol/L (101-111); Globulin 2.6 g/dL (2-4); Glucose 108 mg/dL (70-100); Magnesium 1.8 mg/dL (1.9-2.7); Sodium 129 mmol/L (135-145); Total Bilirubin 15.9 mg/dL (0.2-1.0); Total Protein 5.3 g/dL (6.4-8.9)
[2024-02-14 07:20] LABS: ABS Basophils 0.2 10^3/uL (0.0-0.1); ABS Eosinophils 0.1 10^3/uL (0.0-0.5); ABS Lymphocytes 0.9 10^3/uL (1.0-4.8); ABS Monocytes 4.4 10^3/uL (0.0-1.1); ABS Neutrophils 12.2 10^3/uL (1.5-7.6); ABS Nucleated RBC 0.02 10^3/ul; Anisocytosis 2+; Burr Cells 2+; Eosinophil % 0.7 %; Hematocrit 20.2 % (38-53); Hemoglobin 7.4 g/dL (13.2-16.3); Lymphocyte % 5.2 %; Mean Corpuscular Hgb Conc 36.8 g/dL (31-36); Mean Corpuscular Volume 97.9 fL (80-97); Mean Platelet Volume 7.3 fL (7.5-11.2); Nucleated Red Blood Cells % 0.1 %/100WBC (0.0-0.8); Platelet Count 94 10^3/uL (150-450); Polychromasia 2+; Red Blood Count 2.06 10^6/uL (4.06-5.63); Red Cell Distribution Width 28.6 % (12-17); White Blood Count 17.9 10^3/uL (3.6-10.2)
[2024-02-14 08:43] LABS: Potassium, Whole Blood 4.4 mmol/L (3.4-4.5)
[2024-02-14] MEDS: Magnesium Sulfate IV 1GM/100ML 1 GM/100 ML BAG IV ONE (09:32)
[2024-02-14] MEDS: Phytonadione Oral Solution 5 MG/25 ML UDC PO ONE (11:20)
[2024-02-14] MEDS: Ondansetron 4 mg VIAL 2 MG/ML 2 ml VIAL IV PRN (13:52)
[2024-02-15] MEDS: Calcium Carb (TUMS) 500 mg CHEW TAB PO ONE (02:21)
[2024-02-15 06:41] LABS: Hematocrit 18.6 % (38-53); Hemoglobin 6.7 g/dL (13.2-16.3); Mean Corpuscular Hgb Conc 36.1 g/dL (31-36); Mean Corpuscular Volume 99.9 fL (80-97); Red Blood Count 1.86 10^6/uL (4.06-5.63); Red Cell Distribution Width 28.6 % (12-17); White Blood Count 15.6 10^3/uL (3.6-10.2)
[2024-02-15 07:04] LABS: Anion Gap 6 mmol/L (2-16); Blood Urea Nitrogen 25 mg/dL (6-24); CO2 Carbon Dioxide 28 mmol/L (22-32); Calcium 7.9 mg/dL (8.6-10.3); Chloride 97 mmol/L (101-111); Creatinine, Serum 1.02 mg/dL (0.67-1.17); Glucose 126 mg/dL (70-100); Magnesium 1.7 mg/dL (1.9-2.7); Sodium 131 mmol/L (135-145); eGFR CKD-EPI 82.1 (>60)
[2024-02-15 07:28] LABS: Potassium, Whole Blood 4.2 mmol/L (3.4-4.5)
[2024-02-15 07:55] LABS: Mean Platelet Volume 7.3 fL (7.5-11.2); Platelet Count 95 10^3/uL (150-450)
[2024-02-15 08:25] LABS: Total Bilirubin 13.9 mg/dL (0.2-1.0)
[2024-02-15 08:28] LABS: Hematocrit 18.8 % (38-53); Hemoglobin 6.9 g/dL (13.2-16.3)
[2024-02-15] MEDS: Magnesium Sulfate 2 gm BAG 2 GM/50 ML BAG IVPB ONE (09:51)
[2024-02-15 10:07] LABS: INR 1.87 (0.85-1.14)
[2024-02-15 11:45] LABS: Protime (Maddrey) 19.8 seconds (9.5-12.8)
[2024-02-15 12:28] LABS: Total Bilirubin 13.7 mg/dL (0.2-1.0)
[2024-02-15] MEDS: Lactulose 30 ml UDC PO SCH (13:47)
[2024-02-15] MEDS: Lactulose 300 ML for PR 200 GM/300 ML BTL PR ONE (14:40)
[2024-02-15] MEDS: Senna TAB 8.6 mg TAB PO ONE ×2 (15:05→15:08)
[2024-02-15] MEDS: Famotidine IV 10 MG/ML 2 ml VIAL (20 mg) IV SLOW PU ONE (17:58)
[2024-02-16 06:05] LABS: INR 1.82 (0.85-1.14)
[2024-02-16 06:12] LABS: Hematocrit 17.9 % (38-53); Hemoglobin 6.6 g/dL (13.2-16.3); Mean Corpuscular Hemoglobin 37.4 pg (27-33); Mean Corpuscular Hgb Conc 36.6 g/dL (31-36); Mean Corpuscular Volume 102.1 fL (80-97); Mean Platelet Volume 7.3 fL (7.5-11.2); Platelet Count 108 10^3/uL (150-450); Red Blood Count 1.75 10^6/uL (4.06-5.63); Red Cell Distribution Width 29.7 % (12-17); White Blood Count 16.8 10^3/uL (3.6-10.2)
[2024-02-16 06:39] LABS: ABS Basophils 0.3 10^3/uL (0.0-0.1); ABS Eosinophils 0.2 10^3/uL (0.0-0.5); ABS Lymphocytes 1.5 10^3/uL (1.0-4.8); ABS Monocytes 2.9 10^3/uL (0.0-1.1); ABS Nucleated RBC 0.02 10^3/ul; Anisocytosis 2+; Burr Cells 2+; Lymphocyte % 8.6 %; Macrocytosis 1+; Nucleated Red Blood Cells % 0.1 %/100WBC (0.0-0.8); Polychromasia 1+; Schistocytes 1+
[2024-02-16 07:00] LABS: ALT 5 U/L (7-52); Albumin 2.6 g/dL (3.5-5.7); Albumin/Globulin Ratio 0.9 (1-3); Alkaline Phosphatase 90 U/L (35-149); Anion Gap 5 mmol/L (2-16); Blood Urea Nitrogen 24 mg/dL (6-24); CO2 Carbon Dioxide 30 mmol/L (22-32); Calcium 8.1 mg/dL (8.6-10.3); Chloride 96 mmol/L (101-111); Creatinine, Serum 1.06 mg/dL (0.67-1.17); Globulin 2.8 g/dL (2-4); Glucose 96 mg/dL (70-100); Sodium 131 mmol/L (135-145); Total Bilirubin 14.6 mg/dL (0.2-1.0); Total Protein 5.4 g/dL (6.4-8.9); eGFR CKD-EPI 78.4 (>60)
[2024-02-16 07:41] LABS: Potassium, Whole Blood 4.6 mmol/L (3.4-4.5)
[2024-02-16 08:24] LABS: .Transferrin 117 mg/dL (203-362); Total Iron Binding Capacity 164 mcg/dL (250-450)
[2024-02-16 08:33] LABS: Ferritin 854.3 ng/mL (24-336)
[2024-02-16 08:59] LABS: % Iron Saturation 91 % (15-55); AST Redraw 63 U/L (13-39); Direct Bilirubin Redraw 3.6 mg/dL (0.1-0.5); Iron 150 ug/dL (50-212); LDH 1083 U/L (140-271); Potassium Redraw 4.3 mmol/L (3.5-5.0); Unsaturated Iron Binding 14 ug/dL
[2024-02-16 11:23] LABS: Hematocrit 19.7 % (38-53); Hemoglobin 7.1 g/dL (13.2-16.3)
[2024-02-16 17:45] LABS: Anaplasma phagocytophilum Negative (Negative); B. miyamotoi PCR, B Negative (Negative); Babesia divergens/MO-1 Negative (Negative); Babesia ducani Negative (Negative); Ehrlichia chaffeensis Negative (Negative); Ehrlichia ewingii/canis Negative (Negative); Ehrlichia muris eauclairensis Negative (Negative)
[2024-02-17 06:27] LABS: Hematocrit 21.1 % (38-53); Hemoglobin 7.6 g/dL (13.2-16.3); Mean Corpuscular Hemoglobin 35.5 pg (27-33); Mean Corpuscular Hgb Conc 35.8 g/dL (31-36); Mean Corpuscular Volume 99.3 fL (80-97); Red Blood Count 2.13 10^6/uL (4.06-5.63); Red Cell Distribution Width 29.3 % (12-17); White Blood Count 16.3 10^3/uL (3.6-10.2)
[2024-02-17 06:30] LABS: INR 1.97 (0.85-1.14)
[2024-02-17 06:53] LABS: Potassium 4.9 mmol/L (3.5-5.0)
[2024-02-17 06:54] LABS: Albumin 2.8 g/dL (3.5-5.7); Albumin/Globulin Ratio 0.9 (1-3); Calcium 8.4 mg/dL (8.6-10.3); Creatinine, Serum 1.22 mg/dL (0.67-1.17); Direct Bilirubin 3.5 mg/dL (0.03-0.18); Indirect Bilirubin 11.1 mg/dL (0.3-1.0); Total Bilirubin 14.6 mg/dL (0.2-1.0); Total Protein 5.8 g/dL (6.4-8.9); eGFR CKD-EPI 66.2 (>60)
[2024-02-17 06:57] LABS: Total Bilirubin 14.2 mg/dL (0.2-1.0)
[2024-02-17 07:16] LABS: Protime (Maddrey) 22.1 seconds (9.5-12.8)
[2024-02-17 08:31] LABS: ABS Basophils 0.2 10^3/uL (0.0-0.1); ABS Lymphocytes 0.7 10^3/uL (1.0-4.8); ABS Monocytes 1.1 10^3/uL (0.0-1.1); ABS Neutrophils 14.3 10^3/uL (1.5-7.6); ABS Nucleated RBC 0.02 10^3/ul; Lymphocyte % 4.4 %; Mean Platelet Volume 7.6 fL (7.5-11.2); Nucleated Red Blood Cells % 0.1 %/100WBC (0.0-0.8); Platelet Count 117 10^3/uL (150-450)
[2024-02-17 08:32] LABS: Anisocytosis 3+; Basophilic Stippling 1+; Polychromasia 2+
[2024-02-18 06:00] LABS: Hematocrit 21.4 % (38-53); Hemoglobin 7.6 g/dL (13.2-16.3); Mean Corpuscular Hemoglobin 36.1 pg (27-33); Mean Corpuscular Hgb Conc 35.3 g/dL (31-36); Mean Corpuscular Volume 102.1 fL (80-97); White Blood Count 22.9 10^3/uL (3.6-10.2)
[2024-02-18 06:32] LABS: CKMB ng/mL 1.1 ng/mL (0.6-6.3)
[2024-02-18 06:39] LABS: ABS Basophils 0.2 10^3/uL (0.0-0.1); ABS Lymphocytes 1.2 10^3/uL (1.0-4.8); ABS Monocytes 3.1 10^3/uL (0.0-1.1); ABS Neutrophils 18.4 10^3/uL (1.5-7.6); ABS Nucleated RBC 0.06 10^3/ul; Lymphocyte % 5.4 %; Mean Platelet Volume 7.5 fL (7.5-11.2); Nucleated Red Blood Cells % 0.3 %/100WBC (0.0-0.8); Platelet Count 135 10^3/uL (150-450)
[2024-02-18 07:05] LABS: Magnesium 1.8 mg/dL (1.9-2.7)
[2024-02-18 07:11] LABS: Phosphorus 3.9 mg/dL (2.5-5.0)
[2024-02-18 07:56] LABS: Albumin 2.6 g/dL (3.5-5.7); Albumin/Globulin Ratio 0.9 (1-3); Globulin 2.8 g/dL (2-4); Total Protein 5.4 g/dL (6.4-8.9)
[2024-02-18 07:57] LABS: ALT 5 U/L (7-52); Alkaline Phosphatase 88 U/L (35-149)
[2024-02-18 07:59] LABS: Indirect Bilirubin 11.4 mg/dL (0.3-1.0)
[2024-02-18] MEDS: Magnesium Sulfate 2 gm BAG 2 GM/50 ML BAG IVPB ONE (08:18)
[2024-02-18] MEDS: Iohexol 350 (CONTRAST) 500 ML MDV IV ONE (13:00)
[2024-02-18 14:50] LABS: C Reactive Protein 6.84 mg/L (<8.01)
[2024-02-18 18:34] LABS: Urine Appearance Clear; Urine Bilirubin Negative (Negative); Urine Blood 1+ (Negative); Urine Color Yellow; Urine Glucose Negative (Negative); Urine Ketones Negative (Negative); Urine Nitrite Negative (Negative); Urine Protein Negative (Negative); Urine Specific Gravity 1.036 (1.002-1.030); Urine Urobilinogen 1+ (Negative); Urine pH 5.5 (5.0-8.0)
[2024-02-18 18:50] LABS: Urine Bacteria Absent /HPF (Absent); Urine Red Blood Cell 1+(3-5/hpf) /HPF (0-Trace); Urine White Blood Cell Trace(0-5/hpf) /HPF (0-Trace)
[2024-02-18] MEDS: cefTRIAXone 1 gm/50 mL D5W 1 GM/50 ML BAG IV SCH (22:12)
[2024-02-19 06:27] LABS: Potassium 4.4 mmol/L (3.5-5.0)
[2024-02-19 06:28] LABS: Calcium 8.7 mg/dL (8.6-10.3); Creatinine, Serum 0.9 mg/dL (0.67-1.17); eGFR CKD-EPI 95.4 (>60)
[2024-02-19 06:29] LABS: Albumin 2.8 g/dL (3.5-5.7); Albumin/Globulin Ratio 0.9 (1-3); Magnesium 1.9 mg/dL (1.9-2.7); Total Bilirubin 13.7 mg/dL (0.2-1.0); Total Protein 5.8 g/dL (6.4-8.9)
[2024-02-19 07:47] LABS: ABS Basophils 0.1 10^3/uL (0.0-0.1); ABS Monocytes 2.2 10^3/uL (0.0-1.1); ABS Neutrophils 18.9 10^3/uL (1.5-7.6); ABS Nucleated RBC 0.09 10^3/ul; Acanthocytes 2+; Anisocytosis 3+; Basophilic Stippling 1+; Eosinophil % 0.1 %; Hematocrit 22.3 % (38-53); Hemoglobin 7.9 g/dL (13.2-16.3); Lymphocyte % 4.5 %; Macrocytosis 1+; Mean Corpuscular Hemoglobin 36.8 pg (27-33); Mean Corpuscular Hgb Conc 35.4 g/dL (31-36); Mean Corpuscular Volume 103.9 fL (80-97); Mean Platelet Volume 7.3 fL (7.5-11.2); Nucleated Red Blood Cells % 0.4 %/100WBC (0.0-0.8); Platelet Count 142 10^3/uL (150-450); Polychromasia 1+; Red Blood Count 2.14 10^6/uL (4.06-5.63); Red Cell Distribution Width 30.7 % (12-17); Toxic Granulation 1+; White Blood Count 22.2 10^3/uL (3.6-10.2)
[2024-02-20 07:35] LABS: ALT 19 U/L (7-52); Albumin 2.8 g/dL (3.5-5.7); Alkaline Phosphatase 110 U/L (35-149); Anion Gap 1 mmol/L (2-16); Blood Urea Nitrogen 24 mg/dL (6-24); CO2 Carbon Dioxide 32 mmol/L (22-32); Calcium 8.3 mg/dL (8.6-10.3); Chloride 99 mmol/L (101-111); Creatinine, Serum 0.85 mg/dL (0.67-1.17); Globulin 2.9 g/dL (2-4); Glucose 130 mg/dL (70-100); Magnesium 1.6 mg/dL (1.9-2.7); Sodium 132 mmol/L (135-145); Total Bilirubin 13.2 mg/dL (0.2-1.0); Total Protein 5.7 g/dL (6.4-8.9)
[2024-02-20 08:25] LABS: ABS Basophils 0.1 10^3/uL (0.0-0.1); ABS Lymphocytes 1.8 10^3/uL (1.0-4.8); ABS Monocytes 1.5 10^3/uL (0.0-1.1); ABS Neutrophils 16.6 10^3/uL (1.5-7.6); ABS Nucleated RBC 0.14 10^3/ul; Acanthocytes 1+; Anisocytosis 2+; Eosinophil % 0.1 %; Hematocrit 22.5 % (38-53); Lymphocyte % 9.1 %; Macrocytosis 1+; Mean Corpuscular Hemoglobin 37.4 pg (27-33); Mean Corpuscular Hgb Conc 35.5 g/dL (31-36); Mean Corpuscular Volume 105.3 fL (80-97); Mean Platelet Volume 7.2 fL (7.5-11.2); Nucleated Red Blood Cells % 0.7 %/100WBC (0.0-0.8); Platelet Count 140 10^3/uL (150-450); Polychromasia 1+; Red Blood Count 2.14 10^6/uL (4.06-5.63); Red Cell Distribution Width 31.3 % (12-17)
[2024-02-20] MEDS: Magnesium Sulfate 2 gm BAG 2 GM/50 ML BAG IVPB ONE (08:31)
[2024-02-20 09:03] LABS: Phosphorus 4.2 mg/dL (2.5-5.0); Potassium Redraw 4.1 mmol/L (3.5-5.0)
[2024-02-21] MEDS: Magnesium Sulfate 2 gm BAG 2 GM/50 ML BAG IVPB ONE (09:12)
[2024-02-21] MEDS: Magnesium Sulfate IV 1GM/100ML 1 GM/100 ML BAG IV ONE (11:03)
[2024-02-21 13:41] VITALS: BP 143/57
== END 2024-02-21 14:30 | DRG 871 ==
LOC: ED 14:33 → EDHOLD 14:33 → OBSVTOIN 18:39 → SUATTDRO 18:39 → MEDTELE 01-31 07:49
PROVIDERS: ADMIT Hospitalist; ATTEND Internal Medicine
PROC: O.CATEE (2024-02-03 15:00)
PROC: O.GIEGD (2024-02-03 16:50)

== ENCOUNTER 2024-03-10 09:46 | Inpatient (IN) ==
[2024-03-10 11:05] LABS: Hematocrit 27.2 % (38-53); Hemoglobin 9.5 g/dL (13.2-16.3); Mean Corpuscular Hemoglobin 40.8 pg (27-33); Mean Corpuscular Hgb Conc 35.1 g/dL (31-36); Red Blood Count 2.34 10^6/uL (4.06-5.63); Red Cell Distribution Width 13.2 % (12-17); White Blood Count 13.6 10^3/uL (3.6-10.2)
[2024-03-10 11:22] LABS: Activated Partial Thrombo Time 51.4 seconds (26.0-38.0)
[2024-03-10 11:30] LABS: C Reactive Protein 93.43 mg/L (<8.01); Calcium 8.8 mg/dL (8.6-10.3); Creatinine, Serum 1.11 mg/dL (0.67-1.17); Potassium 4.2 mmol/L (3.5-5.0); eGFR CKD-EPI 74.2 (>60)
[2024-03-10 11:33] LABS: Globulin 2.9 g/dL (2-4); Total Bilirubin 12.9 mg/dL (0.2-1.0); Total Protein 5.9 g/dL (6.4-8.9)
[2024-03-10 11:34] LABS: ABS Basophils 0.1 10^3/uL (0.0-0.1); ABS Lymphocytes 0.5 10^3/uL (1.0-4.8); ABS Monocytes 0.6 10^3/uL (0.0-1.1); ABS Neutrophils 12.4 10^3/uL (1.5-7.6); ABS Nucleated RBC 0.01 10^3/ul; Eosinophil % 0.3 %; Lymphocyte % 3.5 %; Macrocytosis 2+; Mean Platelet Volume 7.8 fL (7.5-11.2); Nucleated Red Blood Cells % 0.1 %/100WBC (0.0-0.8); Platelet Count 67 10^3/uL (150-450)
[2024-03-10] MEDS: NS 0.9% 1000 ml BAG 1,000 ML IV SCH (12:13)
[2024-03-10 12:15] LABS: High Sensitivity Troponin 1 Hr 23 pg/mL (<20)
[2024-03-10] MEDS: Piperacillin/Tazobac 3.375 BAG 3.375 GM/100 ML BAG IV ONE (12:30)
[2024-03-10] MEDS: Iohexol 350 (CONTRAST) 500 ML MDV IV ONE (13:48)
[2024-03-10 14:04] LABS: Urine Appearance Clear; Urine Bilirubin Negative (Negative); Urine Blood Negative (Negative); Urine Color Yellow; Urine Glucose Negative (Negative); Urine Ketones Negative (Negative); Urine Nitrite Negative (Negative); Urine Protein Negative (Negative); Urine Specific Gravity 1.015 (1.002-1.030); Urine Urobilinogen 1+ (Negative); Urine pH 5.5 (5.0-8.0)
[2024-03-10] MEDS: cefTRIAXone 1 gm/50 mL D5W 1 GM/50 ML BAG IV ONE (14:43)
[2024-03-10] MEDS: Azithromycin 500 mg/250 ml NS 500 MG/250 ML BAG IVPB ONE (15:37)
[2024-03-10] MEDS: Lactated Ringers 1000 ml BAG 1,000 ML IV SCH (16:33)
[2024-03-10] MEDS ORDERED: Senna TAB 8.6 mg TAB PO PRN (17:51)
[2024-03-10] MEDS ORDERED: Polyethylene Glycol 3350 17 GM PACKET PO PRN (17:51)
[2024-03-10] MEDS: Benzocaine/Menthol LOZ PO PRN (21:20)
[2024-03-10] MEDS: Lactulose 30 ml UDC PO PRN (21:23)
[2024-03-10] MEDS: guaiFENesin 100 mg/5 ml LIQ unit dose cup PO PRN (23:56)
[2024-03-11 06:24] LABS: Hematocrit 24.4 % (38-53); Hemoglobin 8.5 g/dL (13.2-16.3); Mean Corpuscular Hemoglobin 40.4 pg (27-33); Mean Corpuscular Hgb Conc 35.1 g/dL (31-36); Mean Corpuscular Volume 115.2 fL (80-97); Red Blood Count 2.11 10^6/uL (4.06-5.63); Red Cell Distribution Width 13.3 % (12-17); White Blood Count 11.7 10^3/uL (3.6-10.2)
[2024-03-11 06:41] LABS: Calcium 8.3 mg/dL (8.6-10.3); Creatinine, Serum 0.99 mg/dL (0.67-1.17); Potassium 3.7 mmol/L (3.5-5.0); eGFR CKD-EPI 85.1 (>60)
[2024-03-11 07:28] LABS: ABS Basophils 0.1 10^3/uL (0.0-0.1); ABS Lymphocytes 0.8 10^3/uL (1.0-4.8); ABS Monocytes 0.9 10^3/uL (0.0-1.1); ABS Neutrophils 9.9 10^3/uL (1.5-7.6); ABS Nucleated RBC 0.01 10^3/ul; Eosinophil % 0.2 %; Lymphocyte % 6.6 %; Nucleated Red Blood Cells % 0.1 %/100WBC (0.0-0.8); Platelet Count 59 10^3/uL (150-450)
[2024-03-11] MEDS: cefTRIAXone 1 gm/50 mL D5W 1 GM/50 ML BAG IV SCH (09:45)
[2024-03-11] MEDS: Calcium Carb (TUMS) 500 mg CHEW TAB PO ONE (15:28)
[2024-03-12] MEDS: Albuterol/Ipratropium NEB.SOL (2.5/0.5 MG) 3 ML NEB.SOLN INH PRN (03:41)
[2024-03-12 05:58] LABS: INR 2.4 (0.85-1.14)
[2024-03-12 06:08] LABS: Albumin 2.4 g/dL (3.5-5.7); Creatinine, Serum 0.85 mg/dL (0.67-1.17); Direct Bilirubin 3.8 mg/dL (0.03-0.18); Globulin 2.5 g/dL (2-4); Indirect Bilirubin 6.4 mg/dL (0.3-1.0); Potassium 3.7 mmol/L (3.5-5.0); Total Bilirubin 10.2 mg/dL (0.2-1.0); Total Protein 4.9 g/dL (6.4-8.9)
[2024-03-12 06:39] LABS: Hematocrit 22.6 % (38-53); Hemoglobin 8.1 g/dL (13.2-16.3); Mean Corpuscular Hemoglobin 40.3 pg (27-33); Mean Corpuscular Hgb Conc 35.6 g/dL (31-36); Mean Corpuscular Volume 113.1 fL (80-97); Red Cell Distribution Width 13.3 % (12-17); White Blood Count 10.6 10^3/uL (3.6-10.2)
[2024-03-12 07:33] LABS: ABS Basophils 0.1 10^3/uL (0.0-0.1); ABS Lymphocytes 0.7 10^3/uL (1.0-4.8); ABS Monocytes 0.9 10^3/uL (0.0-1.1); ABS Neutrophils 8.8 10^3/uL (1.5-7.6); Eosinophil % 0.4 %; Lymphocyte % 6.9 %; Mean Platelet Volume 7.8 fL (7.5-11.2); Platelet Count 51 10^3/uL (150-450)
[2024-03-12] MEDS ORDERED: guaiFENesin/CODIENE 100mg/10mg 5 ML UDC PO PRN (11:07)
[2024-03-13] MEDS: Calcium Carb (TUMS) 500 mg CHEW TAB PO ONE (06:00)
[2024-03-13 06:21] LABS: Hematocrit 23.3 % (38-53); Hemoglobin 8.3 g/dL (13.2-16.3); Mean Corpuscular Hemoglobin 39.6 pg (27-33); Mean Corpuscular Hgb Conc 35.4 g/dL (31-36); Mean Corpuscular Volume 111.9 fL (80-97); Red Blood Count 2.08 10^6/uL (4.06-5.63); Red Cell Distribution Width 13.9 % (12-17); White Blood Count 13.4 10^3/uL (3.6-10.2)
[2024-03-13 06:38] LABS: Calcium 7.7 mg/dL (8.6-10.3); Creatinine, Serum 0.87 mg/dL (0.67-1.17); Potassium 4.2 mmol/L (3.5-5.0); eGFR CKD-EPI 96.4 (>60)
[2024-03-13 07:45] LABS: Mean Platelet Volume 8.1 fL (7.5-11.2); Platelet Count 65 10^3/uL (150-450)
[2024-03-13 10:44] VITALS: BP 105/53
== END 2024-03-13 11:55 | DRG 871 ==
LOC: EDHOLD 09:46 → ED 09:46 → SUATTDRO 15:19 → OBSVTOIN 15:19 → MED 16:14
PROVIDERS: ADMIT Internal Medicine; ATTEND Hospitalist